=== PATIENT | male | born 1980 | race Caucasian/White ===

== ENCOUNTER 2021-08-20 00:12 | Emergency (ER) | payer SELFPAY ==
[2021-08-20 00:56] LABS: HEMOGLOBIN 16.5 gm/dl (14.0-17.5); RED BLOOD COUNT 5.39 M/UL (4.20-5.50); WHITE BLOOD COUNT 10.5 K/UL (4.5-11.0)
[2021-08-20 01:14] LABS: BUN/CREATININE RATIO 18 (0-10)
[2021-08-20 05:03] LABS: HEMOGLOBIN 15.2 gm/dl (14.0-17.5); RED BLOOD COUNT 5.11 M/UL (4.20-5.50); WHITE BLOOD COUNT 12.5 K/UL (4.5-11.0)
== END 2021-08-20 06:57 | disposition home or self-care (01) ==
LOC: ER1 00:12
PROVIDERS: Family Medicine
DX: T63.091A Toxic effect of venom of other snake, accidental (unintentional), initial encounter (principal); Z51.81 Encounter for therapeutic drug level monitoring
CPT/HCPCS: 80048; 85025; 85384; 85610; 90471; 90715; 96374; 99283; J1885